=== PATIENT | female | born 1985 ===

== ENCOUNTER 2017-10-07 09:05 | Inpatient (IN) | payer MEDICAID, SELFPAY ==
[2017-10-07 09:36] VITALS: BMI 26.8
[2017-10-07] MEDS ORDERED: Lactated Ringer's 1,000 ML IV SCH (09:45)
[2017-10-07 10:06] LABS: BASO % 0.2 % (0.0-2.0); EOS % 0.1 % (0.0-4.0); HEMATOCRIT 34.8 % (34.0-47.0); LYMPH # 1.4 K/uL (1.0-4.3); LYMPH % 19.3 % (20.0-40.0); MEAN CELL VOLUME 89.8 fL (81.0-99.0); MEAN CORPUSCULAR HEMOGLOBIN 29.7 pg (27.0-31.0); MEAN PLATELET VOLUME 9.6 fL (7.2-11.7); MONO # 0.3 K/uL (0.0-0.8); MONO % 4.6 % (0.0-10.0); NRBC % 0.1 % (0.0-2.0); RED CELL DISTRIBUTION WIDTH 14.1 % (11.5-14.5); WHITE BLOOD COUNT 7.3 K/uL (4.8-10.8)
[2017-10-07 10:14] LABS: ALKALINE PHOSPHATASE 229 U/L (38-126); ALT/SGPT 42 U/L (9-52); AST/SGOT 23 U/L (14-36); BILIRUBIN,TOTAL 0.5 mg/dL (0.2-1.3); BLOOD UREA NITROGEN 9 mg/dL (7-17); CALCIUM 8.4 mg/dl (8.6-10.4); CARBON DIOXIDE 20 mmol/L (22-30); CHLORIDE 107 mmol/L (98-107); GFR AFRICAN-AMERICAN > 60; GLUCOSE,RANDOM 94 mg/dL (65-105); POTASSIUM 3.7 mmol/L (3.6-5.2); SODIUM 136 mmol/L (132-148); TOTAL PROTEIN 6.1 g/dL (6.3-8.3)
[2017-10-07 10:17] LABS: ALB/GLOB RATIO 1.2 (1.0-2.1)
--- NOTE | 2017-10-07 10:26 | OBADHP ---
Datetime: 10/07/2017 10:20 Admit Comment, IP Provider: chief complaint-contractions HPI 32 y/o at 39.3 wga with c/o contractions.denies vaginal bleeding or loss of fluid course complicated [id number] PMH denies PSH denies OBGYN HX ; NVDX1 Social hx denies tobacco,alcohol or illicit drug use Exam see exam section A/P 32 y/o at 39.3 wga in labor.GBS negative.GDMA1 -Admit -see orders Pelvic Type - PN: Adequate Extremities - PN: Normal Abdomen - PN: Normal Back - PN: Normal Lungs - PN: Normal Heart - PN: Normal Neurologic - PN: Normal General - PN: Normal Weight - Estimated: 3200 Presentation-Admit: Vertex Contraction Comments Provider: ever 2-3min Gestation - Est Wks by US: 39.3 IP Hx Assessment: The History has been Reviewed and is Current Vital Signs Provider: Reviewed; Within Normal Limits IP Chief Complaint: Uterine contractions FHR Category Provider Fetus A: Category I Dilatation, Provider: 2 Effacement, Provider: 70 Station, Provider: -2 Genitourinary Exam: Normal DTRs - PN: Normal EGA AdmitDate IP: 39.3 IP Adm Impression: Term, intrauterine ; Active labor IP Admit Plan: Admit to unit; Initiate labor protocol
[2017-10-07] MEDS ORDERED: Bupivacaine 0.125%/FentaNYL 200 ML EPI ONE (11:09)
[2017-10-07 11:18] LABS: RBC URINE 3 /hpf (0-3); URINE BACTERIA FEW (<OCC); URINE BILIRUBIN NEGATIVE (NEGATIVE); URINE BLOOD 3+ (NEGATIVE); URINE COLOR Yellow (YELLOW); URINE GLUCOSE (UA) NORMAL (Normal); URINE KETONE NEGATIVE (NEGATIVE); URINE LEUKOCYTE ESTERASE 3+ Leu/uL (Negative); URINE PROTEIN NEGATIVE (NEGATIVE); URINE UROBILINOGEN NORMAL mg/dL (0.2-1.0); WBC CLUMPS FEW /hpf; WBC URINE 19 /hpf (0-5)
[2017-10-07] MEDS ORDERED: Oxytocin 30 UNIT 30 UNITS/500 ML BAG IV ONE (12:11)
--- NOTE | 2017-10-07 12:11 | OBPN ---
Datetime: 10/07/2017 12:07 IP Progress Impression: Reassuring heart rate IP Procedures: Artificial ROM; Sterile Vag Exam IP Progress Plan: Continue present management Contraction Comments Provider: every 2-3min IP Progress Note Comment: S-patient comfortable with epidural O-VSS Afebrile FHT cat1 Tooc ctx q 2-3min sve 3/80/-2 A/P Patient at 39.3wga in labor.gbs negative -arom done.clear fluid -continue to monitor closely Vital Signs Provider: Reviewed; Within Normal Limits FHR Category Provider Fetus A: Category I Dilatation, Provider: 3 Effacement, Provider: 80 Station, Provider: -2 Datetime: 10/07/2017 10:20 Gestation - Est Wks by US: 39.3 Weight - Estimated: 3200 Presentation-Admit: Vertex
[2017-10-07] MEDS ORDERED: Oxytocin 30 UNIT 30 UNITS/500 ML BAG IV SCH (12:30)
[2017-10-07] MEDS ORDERED: Oxycodone/Acetaminophen 5/325 mg Tab PO PRN (15:49)
[2017-10-07] MEDS ORDERED: Benzocaine/Menthol 20%-0.5% Topical Spray (60 ml) TOP PRN (15:49)
--- NOTE | 2017-10-07 15:50 | OBDS ---
DELIVERY PERSONNEL Delivery Doctor: Santo Dailey MD Highway Maintenance Worker: Tay Mojica RN Anesthesiologist: Gloria Jones MD Resident: stacy MATERNAL INFORMATION Delivery Anesthesia: Epidural Estimated Blood Loss (ml): 200 Placenta Cultured: No Maternal Complications: None Provider Comments: of a male from RE position.Body and shoulders delivered without diffi culty.cord clamped and cut.cord blood collected.placenta spontaneously delivered.first degree vaginal laceration repaired with figure of 8 stitch usng 2-0 chromic.patient stable.fundus firm.infant stabl e. weight 7.1 pounds.apgars 9/9 at 1 and 5 min of life LABOR SUMMARY EDC: 10/11/2017 00:00 No. Babies in Womb: 1 Attempted: No Labor Anesthesia: Epidural LABOR INFORMATION Reason for Induction: Not Applicable Onset of Labor: 10/07/2017 08:00 Complete Dilatation: 10/07/2017 15:20 Oxytocin: Augmentation Group B Beta Strep: Negative Antibiotics # of Doses: 0 Steroids Given: None Reason Steroids Not Administered: Not Applicable MEMBRANES Membranes Rupture Method: Artificial Rupture of Membranes: 10/07/2017 12:06 Length of Rupture (hrs): 3.45 Amniotic Fluid Color: Clear Amniotic Fluid Amount: Moderate Amniotic Fluid Odor: None STAGES OF LABOR Stage 1 hrs: 7 Stage 1 min: 20 Stage 2 hrs: 0 Stage 2 min: 13 Stage 3 hrs: 0 Stage 3 min: 10 Total Time in Labor hrs: 7 Total Time in Labor min: 43 VAGINAL DELIVERY Episiotomy: None Laceration Extension: First Degree Laceration Type: Vaginal Laceration Repair: Yes Laceration Repair Note: first degree vaginal laceration repaired with figure of 8 stitch usng 2-0 ch romic Initial Vag Sponge Count: 10 Final Vag Sponge Count: 10 Initial Vag Sharps Count: 1 Final Vag Sharps Count: 1 Sponge Count Correct: Yes; Vaginal Sweep Performed Sharps Count Correct: Yes BABY A INFORMATION Delivery Date/Time: 10/07/2017 15:33 Method of Delivery: Vaginal Born in Route : No : N/A Forceps: N/A Shoulder Dystocia : No SHOULDER DYSTOCIA BABY A Infant Delivery Date/Time: 10/07/2017 15:33 PRESENTATION/POSITION BABY A Presentation: Cephalic Cephalic Presentation: Vertex Vertex Position: Left Occipital Anterior Breech Presentation: N/A PLACENTA INFORMATION BABY A Placenta Delivery Time : 10/07/2017 15:43 Placenta Method of Delivery: Spontaneous Placenta Status: Delivered SCORES BABY A Heart Rate 1 min: >100 bpm Resp Effort 1 min: Good Cry Reflex Irritability 1 min: Cough or Sneeze or Pulls Away Muscle Tone 1 min: Active Motion Color 1 min: Body [place], Extremities Blue Resuscitation Effort 1 min: N/A SCORE 1 MIN: 9 Heart Rate 5 min: >100 bpm Resp Effort 5 min: Good Cry Reflex Irritability 5 min: Cough or Sneeze or Pulls Away Muscle Tone 5 min: Active Motion Color 5 min: Body [place], Extremities Blue Resuscitation Effort 5 min: N/A SCORE 5 MIN: 9 INFORMATION BABY A Gestational Age at Delivery: 39.3 Gestational Status: Term Infant Outcome : Liveborn Condition : Stable Infant Sex: Male IDENTIFICATION/MEDS BABY A ID Band Number: [id number] ID Band Location: Left Leg; Left Arm Sensor Applied: Yes Sensor Number: [id number] Sensor Location : Cord Clamp WEIGHT/LENGTH BABY A Birthweight (gms): 3205 Weight (lb): 7 Infant Weight (oz): 1 Infant Length Inches: 19.00 Infant Length cms: 48.3 CORD INFORMATION BABY A No. Cord Vessels: 3 [place] Cord : N/A Cord Blood Taken: Yes Infant Suction: None
[2017-10-08 08:18] LABS: BASO % 0.4 % (0.0-2.0); EOS % 0.2 % (0.0-4.0); HEMATOCRIT 31.2 % (34.0-47.0); LYMPH # 2.2 K/uL (1.0-4.3); LYMPH % 19.2 % (20.0-40.0); MEAN CELL VOLUME 89.7 fL (81.0-99.0); MEAN CORPUSCULAR HEMOGLOBIN 30.4 pg (27.0-31.0); MEAN CORPUSCULAR HGB CONC 33.9 g/dL (33.0-37.0); MEAN PLATELET VOLUME 9.9 fL (7.2-11.7); MONO # 0.5 K/uL (0.0-0.8); MONO % 4.8 % (0.0-10.0); NRBC % 0.1 % (0.0-2.0); RED CELL DISTRIBUTION WIDTH 14.1 % (11.5-14.5); WHITE BLOOD COUNT 11.3 K/uL (4.8-10.8)
--- NOTE | 2017-10-08 08:48 | OBPPN ---
Datetime: 10/08/2017 08:44 PP Pain Prov: Within normal limits PP Nausea Prov: Denies PP Flatus Prov: Yes PP BM Prov: No PP Breasts Prov: Normal PP Heart Prov: Normal PP Lungs Prov: Normal PP Abdomen/Uterus Prov: Normal PP Lochia Prov: Normal PP CVA Tenderness Prov: Normal PP Extremities Prov: Normal PP Progress Prov: Normal PP Impression Prov: Normal progression PP Plan Prov: Continue present management PP Progress Note Prov: s: no c/o. tolerating reg diet. denies perineal pain p: routine pp care benefits of reinforced perineal care d/w pt. IP PP Procedures: None
[2017-10-09 00:28] VITALS: PULSE 60
--- NOTE | 2017-10-09 07:50 | OBPPN ---
Datetime: 10/09/2017 07:09 PP Pain Prov: Within normal limits PP Nausea Prov: Denies PP Flatus Prov: Yes PP BM Prov: No PP Heart Prov: Normal PP Lungs Prov: Normal PP Abdomen/Uterus Prov: Normal PP Lochia Prov: Normal PP Extremities Prov: Normal PP Progress Prov: Normal PP Impression Prov: Normal progression PP Plan Prov: Continue present management; Discharge PP Progress Note Prov: Patient seen and examined at bedside. Per nursing no acute events overnight. Patient is doing well, pain is controlled. Lochia is mild. Ambulating and tolerating diet. Urinating without difficulty. Passing flatus, no BM. Breast feeding. Denies headaches, dizziness, cp, palpitati ons, sob, urinary symptoms. VS: 101/60 60 97.5 Gen: AAOx3 CV: RRR Lungs: CTA B/L Abd: Soft, fundus firm at umbilicus Ext: No clubbing, cyanosis, edema; no calf tenderness Labs: 7.3>11.5/34.8<222 11.3>10.6/31.2<211 O positive Rubella immune A/P: 32 year old at 39w3d s/p PPD#2 -Stable, afebrile -Pain control - motrin prn -Encourage ambulation and hydration -Encourage breast feeding -Continue routine care -Anticipate d/c home today - pelvic rest x 6 weeks, f/u with clinic within 6 weeks -Plan d/w attending Leonila Ramirez DO PGY-1 Attending Note: Patient seen, evaluated and examined by me with the Resident. I agree with the abo ve: inwith the additon patient desires to use OCs for contraception. Patient also counseled on iron supplementation for mild anemia. Patietn expressed an understadning and agrees; no questions or conc erns were raised. Plan: 1) as above Vital Signs Provider PP: Reviewed; Within Normal Limits
--- NOTE | 2017-10-09 07:52 | OBDCSUM ---
Datetime: 10/09/2017 07:21 Discharged to, Provider: Home Follow up at, Provider: [facility] Disch Instr Activity: Normal activity; May be up to bathroom; May be up for meals; May Shower Disch Instr Diet: Regular Discharge Instructions, Provider: Routine instructions given Discharge Diagnosis, Provider: Term Delivered Discharge Time: 10/09/2017 10:00 Follow up in weeks, Provider: 6 weeks Disch Referrals: None Contraception discussed, Prov: Yes Disch Activity Restrictions: No sexual activity; Nothing in vagina - [place], tampons, douche Discharge Comment, Provider: Pelvic rest x 6 weeks F/U with clinic in 6 weeks Continue prenatalvitamins 1 tab daily Start iron supplement 1 tab dialy Discharge Diagnosis Prov Other: Gestational diabetes mellitus - diet controlled Anemia Contraception counseling Contraception after Delivery: Control Pill/Patch
[2017-10-09 11:01] VITALS: BP 131/83; RESP 18; TEMP 97.3; O2SAT 98
[2017-10-09] MEDS ORDERED: Influenza Vaccine 60 mcg/0.5 mL SYR (4YR UP) IM ONE (18:27)
== END 2017-10-09 18:50 | disposition home or self-care (01) | DRG 372 ==
LOC: C.EROB 09:05 → C.4D 09:30 → C.4M 16:53
PROVIDERS: ADMIT Student in an Organized Health Care Education/Training Program; ATTEND Student in an Organized Health Care Education/Training Program
PROC: 10E0XZZ Delivery of Products of Conception, External Approach (ICD-10-PCS; principal; 2017-10-07)
PROC: 0HQ9XZZ Repair Perineum Skin, External Approach (ICD-10-PCS; 2017-10-07)
PROC: 10907ZC Drainage of Amniotic Fluid, Therapeutic from Products of Conception, Via Natural or Artificial Opening (ICD-10-PCS; 2017-10-07)
DX: O24.420 Gestational diabetes mellitus in childbirth, diet controlled (principal); O99.02 Anemia complicating childbirth; D64.9 Anemia, unspecified; O70.0 First degree perineal laceration during delivery; Z3A.39 39 weeks gestation of pregnancy; Z37.0 Single live birth